=== PATIENT | male | born 1970 | race Caucasian/White ===

== ENCOUNTER 2020-01-14 07:13 | Outpatient (CLI) | payer BC, OTHER ==
[2020-01-14 15:24] LABS: #Basophils 0.1 thou/uL (0.0-0.2); #Eosinphils 0.2 thou/uL (0.0-0.7); #Lymphocytes 3.3 thou/uL (1.20-3.40); #Monocytes 0.9 thou/uL (0.11-0.59); #Neutrophils 6.4 thou/uL (1.40-6.50); %Eosinophils 2.1 % (0.0-10.0); %Lymphocytes 30.1 % (21.0-51.0); %Monocytes 8.2 % (0.0-10.0); %Neutrophils 58.7 % (42.0-75.0); Hemoglobin 14.4 g/dL (14.0-18.0); Mean Corpuscular HGB CONC 33.6 g/dL (32.0-36.0); Mean Corpuscular Hemoglobin 31.2 pg (27.0-31.0); Mean Corpuscular Volume 92.9 fL (78.0-98.0); Mean Platelet Volume 8.1 fL (7.4-10.4); Platelet Count 284 thou/uL (130-400); RBC Distribution Width 11.3 % (11.5-14.5)
[2020-01-15 17:09] LABS: SARS-CoV-2 MS2 Positive; SARS-CoV-2 N Gene Negative; SARS-CoV-2 S Gene Negative; SARS-CoV-2 orf1ab Negative
== END 2020-01-14 07:14 | disposition home or self-care (01) ==
LOC: LABBT 07:13
PROVIDERS: ATTEND Orthopaedic Surgery Hand Surgery
DX: Z01.812 Encounter for preprocedural laboratory examination (principal); Z11.59 Encounter for screening for other viral diseases; M65.9 Synovitis and tenosynovitis, unspecified; M65.312 Trigger thumb, left thumb
CPT/HCPCS: 85025; 87635; U0003

== ENCOUNTER 2020-01-18 06:58 | Day surgery (SDC) | payer BC ==
[2020-01-14 14:41] VITALS: BMI 34.2
[2020-01-18] MEDS ORDERED: Ketorolac Tromethamine 30 MG/ML VIAL ONE (11:14)
[2020-01-18] MEDS ORDERED: PROPOFOL 200 MG/20 ML VIAL ONE (11:14)
[2020-01-18] MEDS ORDERED: Lidocaine 1% PF 5 ML VIAL ONE (11:14)
[2020-01-18] MEDS ORDERED: Ondansetron PF 4 MG/2 ML Vial ONE (11:14)
[2020-01-18] MEDS ORDERED: Dexamethasone 20 MG/5 ML VIAL ONE (11:14)
[2020-01-18] MEDS ORDERED: Midazolam HCl 2 mg/2 ml Vial ONE (11:41)
[2020-01-18] MEDS ORDERED: Bupivacaine PF 0.5% 30 ML VIAL ONE (11:45)
[2020-01-18] MEDS ORDERED: Bacitracin Zinc Ointment 30 gm TUBE ONE (11:45)
[2020-01-18] MEDS ORDERED: Betamet Acet/Betamet Na Ph 30 MG/5 ML VIAL ONE (11:45)
[2020-01-18] MEDS ORDERED: HYDROmorphone 0.5 MG/0.5 ML SYRINGE ONE (11:47)
[2020-01-18] MEDS ORDERED: HYDROcodone/Acetaminophen 5/325 mg Tablet ONE (13:56)
--- NOTE | 2020-01-19 09:03 | OP ---
DATE OF PROCEDURE: 01/18/2020 PREOPERATIVE DIAGNOSES: 1. Left thumb trigger digit. 2. Very thickened flexor pollicis. FINDINGS AND POSTOPERATIVE DIAGNOSIS: Very thickened A1 tanna with catching of an enlarged thumb flexor pollicis longus tendon without tenosynovitis within the A1 tanna. PROCEDURE PERFORMED: 1. Radial digital nerve neuroplasty. 2. A1 tanna release/trigger finger release of the thumb, left. 3. Celestone injection. 4. Other injection, 10 mL of 0.5% Marcaine prior to incision proximal to the incision from metacarpophalangeal joint block at that level with 0.5% Marcaine, no epi. TOURNIQUET TIME: 14 minutes. ESTIMATED BLOOD LOSS: 5 mL. OTHER INJECTABLES: 3 mL of Celestone over the thick portion of the tendon. INDICATIONS: The patient had locked thumb interphalangeal joint in 45 degrees flexion, which manually could not be extended while he was awake. When he was asleep, I could not extend it either. For this reason, we knew he had marked incongruity between the space at the A1 tanna and the tendon width. We then gave him the injection, outlined a right angle incision to the volar flexion crease in the MP joint. DESCRIPTION OF PROCEDURE: After the limb was exsanguinated and the tourniquet inflated to 250 mmHg pressure, we made this incision. We carried through skin and subcutaneous tissue and immediately could see that the radial digital nerve crossed over the tendon where it was widest and was somewhat adherent, so we had to perform a formal neuroplasty to free it. We then released the A1 tanna. There was thickening and a small amount of crepitus, so we performed a small synovial resection proximal to the A1 tanna, this involved trimming a small amount from the FPL itself. Then, we could hyperextend the interphalangeal joint to 30 degrees without any crepitus or undue tension. It did not snap back into flexion. The patient had tourniquet deflated and hemostasis obtained. 3 mL of Celestone dripped around the tendon area, where the release took place at the A1 tanna and the digital nerves were intact. We then closed the incision with interrupted 4-0 nylon in a simple pattern, then released the tourniquet with 0.5 second capillary refill and pink digits. We then achieved passively 20 degrees of hyperextension as much flexion as possible, but before the surgery we could not achieve any extension. Job ID: [id number]
== END 2020-01-18 16:30 | disposition home or self-care (01) ==
LOC: SDC 06:58
PROVIDERS: ATTEND Orthopaedic Surgery Hand Surgery
PROC: 01Q60ZZ Repair Radial Nerve, Open Approach (ICD-10-PCS; principal; 2020-01-18)
PROC: 0LN80ZZ Release Left Hand Tendon, Open Approach (ICD-10-PCS; principal; 2020-01-18)
DX: M65.312 Trigger thumb, left thumb (principal); F41.9 Anxiety disorder, unspecified; Z79.899 Other long term (current) drug therapy; Z87.891 Personal history of nicotine dependence
CPT/HCPCS: J0690; J0702; J1100; J1170; J1885; J2001; J2250; J2405; J2704; J3370; S0020

== ENCOUNTER 2022-01-19 11:51 | Emergency (ER) | payer BC ==
[2022-01-19] MEDS ORDERED: Morphine 4 MG/ML VIAL ONE (13:02)
[2022-01-19] MEDS ORDERED: Ketorolac Tromethamine 30 MG/ML VIAL ONE (13:03)
[2022-01-19] MEDS ORDERED: Ondansetron ODT 4 MG TAB ONE (13:03)
[2022-01-19] MEDS ORDERED: Dexameth. Sod Phosp. 10 MG/ML (CHEMO USE ONLY) ONE (13:03)
== END 2022-01-19 14:03 | disposition home or self-care (01) ==
LOC: ERS 11:51
DX: M54.50 Low back pain, unspecified (principal); E78.6 Lipoprotein deficiency; Z79.899 Other long term (current) drug therapy
CPT/HCPCS: 96372; 99283; J1100; J1885; J2270; Q0162

== ENCOUNTER 2022-01-24 20:35 | Emergency (ER) | payer BC ==
[2022-01-24] MEDS ORDERED: Ketorolac Tromethamine 30 MG/ML VIAL ONE (22:03)
[2022-01-24] MEDS ORDERED: traMADol HCl 50 MG TAB ONE (22:04)
[2022-01-24] MEDS ORDERED: predniSONE 20 MG TAB ONE (22:07)
== END 2022-01-24 22:53 | disposition home or self-care (01) ==
LOC: ERS 20:35
DX: M54.42 Lumbago with sciatica, left side (principal); E78.5 Hyperlipidemia, unspecified
CPT/HCPCS: 96372; 99283; J1885; J7512

== ENCOUNTER 2022-01-28 16:04 | Outpatient (CLI) | payer BC | END 2022-01-28 16:05 | disposition home or self-care (01) | LOC: BICRAD 16:04 | PROVIDERS: ATTEND Family Medicine | DX: M47.26 Other spondylosis with radiculopathy, lumbar region (principal); R29.898 Other symptoms and signs involving the musculoskeletal system | CPT/HCPCS: 72100 ==

== ENCOUNTER 2022-02-25 15:05 | Outpatient (CLI) | payer BC | END 2022-02-25 15:06 | disposition home or self-care (01) | LOC: TBSIIMAG 15:05 | PROVIDERS: ATTEND Neurological Surgery | DX: M51.16 Intervertebral disc disorders with radiculopathy, lumbar region (principal); R29.898 Other symptoms and signs involving the musculoskeletal system; M48.061 Spinal stenosis, lumbar region without neurogenic claudication | CPT/HCPCS: 72148 ==

== ENCOUNTER 2022-04-10 16:10 | Outpatient (CLI) | payer BC ==
[2022-04-10 16:55] LABS: Hemoglobin 14.3 g/dL (13.5-17.5); Mean Corpuscular Hemoglobin 30.5 pg (27.0-33.0); Mean Corpuscular Volume 89.8 fl (81.2-95.1); Mean Platelet Volume 11.1 fl (7.4-10.4); Platelet Count 312 10x3/uL (150-450); RBC Distribution Width 12.7 % (11.5-14.5); Red Blood Cell (RBC) Count 4.69 10x6/uL (4.32-5.72); White Blood Cell (WBC) Count 10.6 10x3/uL (3.5-10.5)
[2022-04-10 17:15] LABS: Anion Gap 15 mmol/L (10-20); BUN (Urea Nitrogen) 19 mg/dL (8.4-25.7); Calc. Creatinine Clearance 0 mL/min (70-130); Calcium 9.6 mg/dL (7.8-10.44); Carbon Dioxide 22 mmol/L (22-29); Chloride 107 mmol/L (98-107); Estimated GFR 83; Glucose 79 mg/dL (70-105); Sodium 140 mmol/L (136-145)
== END 2022-04-10 16:11 | disposition home or self-care (01) ==
LOC: LABBT 16:10
PROVIDERS: ATTEND Neurological Surgery
DX: Z01.818 Encounter for other preprocedural examination (principal); Z20.822 Contact with and (suspected) exposure to COVID-19
CPT/HCPCS: 80048; 85027; 87811; 93005; 93010

== ENCOUNTER 2022-04-15 06:30 | Day surgery (SDC) | payer BC ==
[2022-04-11 10:38] VITALS: BMI 34.2
[2022-04-15] MEDS ORDERED: Midazolam HCl 2 mg/2 ml Vial ONE (06:46)
[2022-04-15] MEDS ORDERED: fentaNYL Citrate/PF 100 MCG/2 ML SYRINGE ONE (06:46)
[2022-04-15] MEDS ORDERED: SUGAMMADEX SODIUM 200 MG/2 ML VIAL ONE (06:47)
[2022-04-15] MEDS ORDERED: HYDROmorphone 0.5 MG/0.5 ML SYRINGE ONE ×5 (06:47→10:03)
[2022-04-15] MEDS ORDERED: Ondansetron PF 4 MG/2 ML Vial ONE (07:27)
[2022-04-15] MEDS ORDERED: PROPOFOL 200 MG/20 ML VIAL ONE (07:27)
[2022-04-15] MEDS ORDERED: Dexamethasone 20 MG/5 ML VIAL ONE (07:27)
[2022-04-15] MEDS ORDERED: Rocuronium Bromide 10 MG/ML (10ML VIAL) ONE (07:27)
[2022-04-15] MEDS ORDERED: Lidocaine 1% PF 5 ML VIAL ONE (07:27)
[2022-04-15] MEDS ORDERED: Sodium Chloride 0.9% 100 ML ONE (07:47)
[2022-04-15] MEDS ORDERED: CEFAZOLIN 2 GM VIAL ONE (07:47)
[2022-04-15] MEDS ORDERED: Promethazine HCl 25 MG/ML VIAL IM PRN (08:52)
[2022-04-15] MEDS ORDERED: Promethazine HCl 25 MG/ML VIAL IVPB PRN (08:52)
[2022-04-15] MEDS ORDERED: Ondansetron HCl/PF 4 MG/2 ML Vial IVP PRN (08:52)
[2022-04-15] MEDS ORDERED: Ketorolac Tromethamine 30 MG/ML VIAL IVP PRN (08:52)
[2022-04-15] MEDS ORDERED: HYDROmorphone 2 MG/ML VIAL SLOW IVP PRN (08:52)
[2022-04-15] MEDS ORDERED: Tamsulosin HCl 0.4 MG CAP ONE (09:38)
[2022-04-15] MEDS ORDERED: Fentanyl 100 MCG/2 ML VIAL ONE (10:17)
== END 2022-04-15 11:35 | disposition home or self-care (01) ==
LOC: SDC 06:30
PROVIDERS: ATTEND Neurological Surgery
PROC: 01NB0ZZ Release Lumbar Nerve, Open Approach (ICD-10-PCS; principal; 2022-04-15)
PROC: 0SB20ZZ Excision of Lumbar Vertebral Disc, Open Approach (ICD-10-PCS; principal; 2022-04-15)
DX: M51.16 Intervertebral disc disorders with radiculopathy, lumbar region (principal); Z79.899 Other long term (current) drug therapy
CPT/HCPCS: 76000; J0690; J1100; J1170; J2250; J2405; J2704; J3010; J3370; J3490

== ENCOUNTER 2022-08-06 10:33 | Emergency (ER) | payer BC ==
[2022-08-06 11:24] LABS: #Basophils 0.1 thou/uL (0.0-0.2); #Eosinphils 0.1 thou/uL (0.0-0.7); #Monocytes 1.5 thou/uL (0.11-0.59); #Neutrophils 10.2 thou/uL (1.40-6.50); %Basophils 0.6 % (0.0-1.0); %Eosinophils 0.4 % (0.0-10.0); %Lymphocytes 20.5 % (21.0-51.0); %Monocytes 9.9 % (0.0-10.0); %Neutrophils 68.6 % (42.0-75.0); Hemoglobin 17.4 g/dL (14.0-18.0); Mean Corpuscular HGB CONC 34.1 g/dL (32.0-36.0); Mean Corpuscular Hemoglobin 31.5 pg (27.0-31.0); Mean Corpuscular Volume 92.3 fl (78.0-98.0); Mean Platelet Volume 7.5 fL (7.4-10.4); Platelet Count 354 10x3/uL (130-400); RBC Distribution Width 12.3 % (11.5-14.5); Red Blood Cell (RBC) Count 5.52 mill/uL (4.70-6.10); White Blood Cell (WBC) Count 14.8 10x3/uL (4.8-10.8)
[2022-08-06 11:46] LABS: ALT (SGPT) 345 U/L (8-55); AST (SGOT) 287 U/L (5-34); Albumin 4.9 g/dL (3.5-5.0); Alkaline Phosphatase 70 U/L (40-110); Anion Gap 19 mmol/L (10-20); BUN (Urea Nitrogen) 16 mg/dL (8.4-25.7); Bilirubin, Total 2.4 mg/dL (0.2-1.2); Calc. Creatinine Clearance 0 mL/min (70-130); Calcium 9.8 mg/dL (7.8-10.44); Carbon Dioxide 20 mmol/L (22-29); Chloride 98 mmol/L (98-107); Estimated GFR 68; Globulin 3.1 g/dL (2.4-3.5); Glucose 105 mg/dL (70-105); Potassium 4.3 mmol/L (3.5-5.1); Sodium 133 mmol/L (136-145)
[2022-08-06 13:01] LABS: Bilirubin Negative (Negative); Blood, Urine Large (Negative); Glucose, Urine (Dipstick) Negative (Negative); Ketone, Urine Negative (Negative); Leukocyte Negative (Negative); Nitrite Negative (Negative); Protein, Urine (Dipstick) 30 mg/dL (Neg-Trace)
[2022-08-06 13:03] LABS: Clarity Hazy (Clear)
[2022-08-06 13:04] LABS: Specific Gravity, Urine 1.024 (1.002-1.036)
[2022-08-06 13:07] LABS: Bacteria/HPF None Seen HPF (None Seen); RBC/HPF 0-3 HPF (0-3); Squamous Epithelial 0-3 HPF (0-3); WBC/HPF 0-3 HPF (0-3)
[2022-08-06 14:00] LABS: Acetaminophen Less than 10.0 mcg/mL (10.0-30.0); Alcohol Less than 10 mg/dL (Less than 10); Salicylate Less than 8.0 mg/dL (15.0-30.0)
[2022-08-06] MEDS ORDERED: chlordiazePOXIDE HCl 25 MG CAP PO SCH (14:15)
== END 2022-08-06 15:38 | disposition home or self-care (01) ==
LOC: ERS 10:33
DX: F10.239 Alcohol dependence with withdrawal, unspecified (principal); E78.5 Hyperlipidemia, unspecified
CPT/HCPCS: 36415; 71045; 80053; 80307; 81003; 81015; 82550; 84443; 84484; 85025; 93005; 96360